=== PATIENT | male | born 1950 | race Caucasian/White ===

== ENCOUNTER 2016-05-19 11:28 | Emergency (ER) | payer MEDICARE ==
[~2016-05-19] VITALS: Ht 185.4 cm; Wt 66.3 kg
[~2016-05-19 11:28] MED LIST: AUGM875T PO
[2016-05-19 11:30] VITALS: BP 131/88; PULSE 104; RESP 16; TEMP 98.3; O2SAT 98
--- NOTE | 2016-05-19 11:57 | PD ---
HPI Chief Complaint: Injury Time Seen by Provider: 11:56 Travel History International Travel<30 days: No Contact w/Intl Traveler<30days: No Traveled to known affect area: No History of Present Illness HPI 65-year-old male presents to the emergency department for evaluation of right foot, possible foreign body and possible infection. Patient states he believed he stepped on a piece of metal approximately 6 months ago. He states he has been noticing some swelling and tenderness recently. He had some amoxicillin left over at home that he had taken for a tick bite previously and started taking this without improvement. No fevers or chills. He states his tetanus immunization is up-to-date. He denies any chronic medical problems or taking any prescribed medications at this time. [facility] Past Medical History Diminished Hearing: No Hypertension: Yes Immunizations Current: No Tetanus Vaccination: < 5 Years Influenza Vaccination: No Past Surgical History Abdominal Surgery: Yes (hernia) Appendectomy: Yes Social History Alcohol Use: Yes Tobacco Use: Yes (1.5 ppd) Substance Use: No (denies ) Allergies-Medications (Allergen,Severity, Reaction): Coded Allergies: No Known Allergies (Unverified , 05/19/16) Reported Meds & Prescriptions Reported Meds & Active Scripts Active No Active Prescriptions or Reported Medications Review of Systems Except as stated in HPI: all other systems reviewed are Neg Physical Exam Narrative GENERAL: Well-developed well-nourished male patient, Afebrile. SKIN: Warm and dry. Patient has 2 small open areas to the right plantar foot with some mild swelling, but no erythema or warmth. Mild serous drainage noted , but no purulent drainage. No tenderness to palpation. No fluctuance or evidence of abscess formation. No lymphangiitis. HEAD: Normocephalic. EYES: No scleral icterus. No injection or drainage. NECK: Supple, trachea midline. No JVD or lymphadenopathy. CARDIOVASCULAR: Regular rate and rhythm without murmurs, gallops, or rubs. Right pedal pulses 2+. Capillary refills less than 2 seconds to the digits of the right foot. RESPIRATORY: Breath sounds equal bilaterally. No accessory muscle use. Lungs sounds are clear to auscultation. GASTROINTESTINAL: Abdomen soft, non-tender, nondistended. MUSCULOSKELETAL: No cyanosis, or edema. BACK: Nontender without obvious deformity. No CVA tenderness. Data Data Last Documented VS Vital Signs Date Time Temp Pulse Resp B/P Pulse Ox O2 Delivery O2 Flow Rate FiO2 05/19/16 11:30 98.3 104 16 131/88 98 Orders Foot, Complete (Cog0ohu) (05/19/16 ) Wound Culture And Gram Stain (05/19/16 11:57) Ciprofloxacin (Cipro) (05/19/16 13:45) MDM Medical Decision Making Medical Screen Exam Complete: Yes Emergency Medical Condition: Yes Medical Record Reviewed: Yes Interpretation(s) x-ray right foot - FINDINGS: Two view right foot demonstrate there are two small serpiginous metallic fragments overlying the foot. One is along the plantar aspect of the third metatarsal head and the other overlying the fifth toe, also in the plantar aspect. Underlying bones are normal. There is no evidence of fracture. CONCLUSION: Two foreign objects as described above. Differential Diagnosis Foreign body versus cellulitis versus abscess Narrative Course 65-year-old male presents to the emergency department for evaluation of possible foreign body to the right foot for approximately 6 months. He is now concerned that it is also infected. X-ray of the right foot is ordered and pending. Wound culture is taken. X-ray of the right foot shows two small serpiginous metallic fragments overlying the foot, no bony abnormality. These foreign bodies have been in the foot for 6 months. I instructed the patient on the need to follow up with podiatry. He will be started on ciprofloxacin and is given his first dose in the emergency department. Patient be given the name and number of the sheep or calf grader on-call today. He is in agreement to this. The patient was discharged in stable condition with instructions, including return instructions and follow up instructions. Diagnosis Primary Impression: Foreign body in right foot with infection Qualified Code: S90.851A - Foreign body in right foot with infection, initial encounter Referrals: Laura James DPM call for appointment Patient Instructions: Cellulitis (ED), General Instructions, Soft Tissue Foreign Body (ED) Additional Instructions: Take antibiotic as directed until gone. Follow-up with podiatry. Dr. James is our sheep or calf grader on-call today. Clean twice daily with soap and water and apply [id number] antibiotic ointment. Retrun to the emergency department for any acute worsening of symptoms. Med/Other Pt SpecificInfo: Prescription(s) given Scripts Ciprofloxacin (Cipro)500 Mg [id number] Mg PO BID 10 Days Ref 0 Prov:Joan Jane 05/19/16 Disposition: 01 DISCHARGE HOME Condition: Stable Joan Jane May 19, 2016 11:57
--- NOTE | 2016-05-19 13:25 | RADRPT ---
EXAM DATE/TIME: 05/19/2016 12:09 [place] COMPARISON: No previous studies available for comparison. INDICATIONS: Foreign body. MEDICAL HISTORY: None. SURGICAL HISTORY: None. ENCOUNTER: Initial ACUITY: 4 - 6 months PAIN SCORE: 5/10 LOCATION: Right Foot. FINDINGS: Two view right foot demonstrate there are two small serpiginous metallic fragments overlying the foot . One is along the plantar aspect of the third metatarsal head and the other overlying the fifth toe , also in the plantar aspect. Underlying bones are normal. There is no evidence of fracture. CONCLUSION: Two foreign objects as described above. Arturo Craven MD on May 19, 2016 at 13:15 Board Certified Radiologist. This report was verified electronically.
[2016-05-19] MEDS ORDERED: CIPR-9 PO (13:37)
[2016-05-19] MEDS ORDERED: CIPROFLOXACIN 500 MG TAB PO ONE (13:45)
== END 2016-05-19 14:55 | disposition home or self-care (01) ==
LOC: NEPA 11:28
DX: S90.851A Superficial foreign body, right foot, initial encounter (principal); L08.89 Other specified local infections of the skin and subcutaneous tissue; B96.89 Other specified bacterial agents as the cause of diseases classified elsewhere; I10 Essential (primary) hypertension; F17.210 Nicotine dependence, cigarettes, uncomplicated; W45.8XXA Other foreign body or object entering through skin, initial encounter; Y93.01 Activity, walking, marching and hiking
CPT/HCPCS: 73630; 86403; 87070; 87077; 87186; 99283

== ENCOUNTER → 2016-05-28 | Day surgery (SDC) | payer MEDICARE, OTHER ==
[~2016-05-28] MED LIST changes: -AUGM875T PO; +BACITRACIN TOP OINT 15 GM TUBE ONE; +BUPIVACAINE HCL PF 0.5% 30 ML VIAL ONE; +CIPR-9 PO; +KETOROLAC TROMETHAMINE 30 MG/ML (IVP) VIAL IV PUSH ONE; +LACTATED RINGER'S 1000 ML INJ 1,000 ML ONE; +MIDAZOLAM HCL 2 MG/2 ML VIAL ONE; +PROPOFOL 200 MG/20 ML AMP IV ONE; +ceFAZolin 2 GM PREMIX 50 ML ONE; +ceFAZolin INJ 1,000 MG VIAL ONE
--- NOTE | 2016-05-31 09:44 | MP ---
cc: LAURA DANG DATE OF SURGERY: May 28, [address] Laura Dang. STATIONS SUPERINTENDENT None. PREOPERATIVE DIAGNOSIS Right foot foreign body. POSTOPERATIVE DIAGNOSIS 1. Right foot foreign body x2. 2. Right foot abscess. PROCEDURES PERFORMED 1. Right foot I&D. 2. Right foot foreign body removal x2. PATHOLOGY Abscess culture swab. ANESTHESIA General. HEMOSTASIS Pneumatic ankle tourniquet at 68 minutes at 250 mmHg. ESTIMATED BLOOD LOSS Less than 5 mL. MATERIALS USED 3-0 Monocryl, 3-0 Prolene and bacitracin. INJECTABLES 10 ccs of 0.5% Marcaine plain. COMPLICATIONS None. INDICATIONS Mr. Ayala is a 65-year male patient who believes he stepped on metal shavings while working on his motorcycle in his garage. He believes this happened about 6 months ago. He has since had one or two infections, one of which sent him to the Urgent Care. It was being suppressed on antibiotics but the area continued to appear inflamed and tender and the foreign bodies were noted on radiographs so decision was made to have the foreign bodies surgically removed and the area properly cleansed. Consent was signed and the procedure was explained. No guarantees were given. The patient is aware of postoperative needs. PROCEDURE Under mild sedation the patient was brought to the operating room and placed on the operating table in supine position. Following IV sedation, pneumatic ankle tourniquet was placed on the right ankle. The foot was then scrubbed, prepped and draped in usual aseptic manner. An Esmarch bandage was used to exsanguinate the right foot and using a C-arm the right plantar third metatarsal of foreign body was identified. A linear longitudinal incision was deepened through skin and subcutaneous tissue with care being taken to identify and retract any vital neurovascular structure. After approximately 30 minutes of exploration, deepened and lengthening the incision and taking multiple fluoroscopy images, the piece of wire was identified as removed. The area was flushed with copious amounts of sterile saline. It should be noted that upon initial incision there was a pocket with approximately 7 mL a purulent fluid which was cultured and did not appear to extend deeper into the joint space. That area was flushed with copious amounts of sterile saline, closed with 3-0 Monocryl and 3-0 Prolene and attention was then directed to the plantar aspect of the fifth digit where a second piece of metallic shaving was noted. A linear incision was created under just plantar to the PIPJ, deepened through skin and subcutaneous tissue with care being taken to identify and retract any vital neurovascular structures and this piece was easier to identify and retrieve. This area was again flushed with copious amounts of sterile saline, closed with 3-0 Prolene. Radiographs were taken to ensure complete removal of all foreign bodies. 10 ccs of 0.5 Marcaine plain were injected around both incision sites. The pneumatic ankle tourniquet was released. There was a prompt hyperemic response to all digits of the right foot. A sterile dressing of Adaptic, Bactroban, 4x4s, Miguel and Yann wrap was applied. The patient tolerated the procedure and the anesthesia well. He will recover in the PACU and be discharged home with written and oral postoperative instructions. Laura HAWK/TLL /9:08 AM /8:17 AM
== END | disposition home or self-care (01) ==
LOC: ESDC 06:32
PROVIDERS: ATTEND Podiatrist Foot & Ankle Surgery
DX: S91.341A Puncture wound with foreign body, right foot, initial encounter (principal); L02.611 Cutaneous abscess of right foot; B96.89 Other specified bacterial agents as the cause of diseases classified elsewhere
CPT/HCPCS: 01470; 28192; 73620; 86403; 87015; 87070; 87102; 87116; 87205; 87206; J0690; J1885; J2250; J3010; J7120